=== PATIENT | female | born 1975 | race Caucasian/White ===

== ENCOUNTER → 2016-10-18 | Outpatient (CLI) | payer OTHER ==
--- NOTE | 2016-10-22 08:07 | MM ---
Reason for exam: screening (asymptomatic). Last mammogram was performed 5 years and 1 month ago. History: Patient had first child at age 31. Family history of breast cancer in paternal grandmother at age 70. Physical Findings: A clinical breast exam by your physician is recommended on an annual basis and results should be correlated with mammographic findings. MG Screening Mammo w CAD Bilateral CC and MLO view(s) were taken. Prior study comparison: September 20, 2011, bilateral digital screening mammo w/CAD. The breast tissue is heterogeneously dense. This may lower the sensitivity of mammography. Stable faint grouped calcifications on the left breast. No significant changes when compared with prior studies. ASSESSMENT: Negative, BI-RAD 1 RECOMMENDATION: Routine screening mammogram of both breasts in 1 year.
== END | disposition home or self-care (01) ==
LOC: RADMAMWWP 13:30
PROVIDERS: ATTEND Obstetrics & Gynecology
DX: Z12.31 Encounter for screening mammogram for malignant neoplasm of breast (principal)

== ENCOUNTER → 2016-11-11 | Outpatient (CLI) | payer OTHER ==
[2016-11-11 07:06] LABS: Basophils % (A) 1 %; CH 30.8; CHCM 32.7; Eosinophils # (A) 0.1 k/uL (0-0.7); Eosinophils % (A) 1 %; HCT 43.4 % (34.0-46.0); HDW 2.36; HGB 14.1 gm/dL (11.4-16.0); Luc # (Auto) 0.16; Luc % (Auto) 3; Lymphocytes # (A) 1.5 k/uL (1.0-4.8); Lymphocytes % (A) 30 %; MCH 30.7 pg (25.0-35.0); MCHC 32.5 g/dL (31.0-37.0); MCV 94.6 fL (80.0-100.0); Mean Platelet Volume 7.6; Monocytes # (A) 0.4 k/uL (0-1.0); Monocytes % (A) 7 %; Neutrophils # (A) 2.8 k/uL (1.3-7.7); Neutrophils % (A) 58 %; RBC 4.58 m/uL (3.80-5.40); RDW 12.3 % (11.5-15.5); WBC 4.9 k/uL (3.8-10.6); WBC (Perox) 4.93
== END | disposition home or self-care (01) ==
LOC: LABPAT 06:38
PROVIDERS: ATTEND Obstetrics & Gynecology
DX: Z01.812 Encounter for preprocedural laboratory examination (principal)
CPT/HCPCS: 85025

== ENCOUNTER 2016-11-19 06:23 | Day surgery (SDC) | payer OTHER, BC ==
--- NOTE | 2016-11-18 20:04 | P.HPOB ---
History of Present Illness H&P Date: 11/18/16 Chief Complaint: Menorrhagia, family planning This is a 41-year-old female 2 para 2 who presents for dilation and curettage with hysteroscopy and NovaSure endometrial ablation along with laparoscopic tubal ligation secondary to menorrhagia and family planning. Her menses are occurring every 26 days the last 6 days with the first 2-3 days very heavy to the point she has to change a pad every hour. In addition she would like a laparoscopic tubal ligation for family planning Her previous ultrasound has shown a uterus measuring up to 8 cm in length with no abnormalities noted on ovaries. Obstetrical history: . History of 2 vaginal deliveries. Gynecologic history: No history of sexual transmitted diseases. Social history: She is she is currently using condoms for control. She works as a teacher. Review of Systems Menstruation: Reports period heavy Psychiatric: Reports anxiety Past Medical History Past Medical History: No Reported History Additional Past Medical History / Comment(s): MENORRHAGIA History of Any Multi-Drug Resistant Organisms: None Reported Past Surgical History: No Surgical Hx Reported Past Anesthesia/Blood Transfusion Reactions: No Reported Reaction Additional Past Anesthesia/Blood Transfusion Reaction / Comment(s): NO PRIOR ANESTHESIA HX Past Psychological History: No Psychological Hx Reported Smoking Status: Current every day smoker Past Alcohol Use History: Occasional Additional Past Alcohol Use History / Comment(s): SMOKES <1/2 PPD OFF AND ON SINCE 2001 Past Drug Use History: None Reported - Past Family History Mother Family Medical History: Thyroid Disorder Medications and Allergies Home Medications Medication Instructions Recorded Confirmed Type No Known Home Medications [No 11/15/16 11/15/16 History Known Home Medications] Allergies Allergy/AdvReac Type Severity Reaction Status Date / Time No Known Allergies Allergy Verified 11/15/16 09:57 Exam Osteopathic Statement: *. No significant issues noted on an osteopathic structural exam other than those noted in the History and Physical/Consult. HEENT: Within normal limits Heart: Regular rate and rhythm Lungs: Clear to auscultation bilaterally Abdomen: Soft, nontender Pelvic exam: Uterus is small, anteverted, no adnexal masses or tenderness noted. Extremities: Negative Homans Assessment and Plan (1) Menorrhagia with regular cycle Status: Acute (2) Family planning Status: Acute Plan: Proceed with dilation and curettage with hysteroscopy and NovaSure endometrial ablation along with laparoscopic bilateral tubal ligation via fulguration. I have discussed the risks, benefits, and alternative therapies for the above- mentioned procedure and for both sedation/anesthesia as well as necessary blood products administration, if indicated, as they pertain to this patient. The patient has indicated her understanding and acceptance of the risks and procedures discussed.
[~2016-11-19 06:23] MED LIST: DEXAMETHASONE SOD PHOSPHATE 10 MG/ML 1 ML VIAL IV ONE; HYDROmorphone 1 MG/ML 1 ML SYRINGE IVP PRN; LACTATED RINGERS 1,000 ML IV SCH; LIDOCAINE 1% 20 ML VIAL (10MG/ML) FOR IV START INTRADERMA PRN; MIDAZOLAM 2 MG/2 ML VIAL IV PRN; ONDANSETRON 4 MG/2 ML VIAL IVP ONE; Pre Op ABX Message 1 EACH MISC MISCELLANE ONE; SCOPOLAMINE 1.5MG/72HR PATCH TRANSDERM ONE
[2016-11-19] MEDS ORDERED: PROPOFOL 10 MG/ML 20 ML VIAL IV ONE (07:30)
[2016-11-19] MEDS ORDERED: SUCCINYLCHOLINE CHLORIDE 100 MG/5 ML SYR IV ONE (07:30)
[2016-11-19] MEDS ORDERED: MIDAZOLAM 2 MG/2 ML VIAL ONE (07:30)
[2016-11-19] MEDS ORDERED: fentaNYL (PF) 50 MCG/ML 2 ML AMP ONE (07:30)
[2016-11-19] MEDS ORDERED: GLYCOPYRROLATE 0.2 MG/ML 2 ML VIAL ONE (07:30)
[2016-11-19] MEDS ORDERED: LIDOCAINE 1% INJ 10MG/ML (20 ML MDV) ONE (07:30)
[2016-11-19] MEDS ORDERED: NEOSTIGMINE 1 MG/ML 10 ML VIAL ONE (07:30)
[2016-11-19] MEDS ORDERED: ROCURONIUM BROMIDE 10 MG/ML 10 ML VIAL IV ONE (07:30)
[2016-11-19] MEDS ORDERED: KETOROLAC 30 MG/ML 1 ML VIAL ONE (07:30)
[2016-11-19] MEDS ORDERED: LACTATED RINGERS 1,000 ML IV ONE (08:15)
[2016-11-19] MEDS ORDERED: BUPIVACAINE (PF) 0.25% 30 ML VIAL SQ ONE (08:24)
--- NOTE | 2016-11-19 08:35 | P.OP ---
Date of Procedure: 11/19/16 Preoperative Diagnosis: Menorrhagia, family planning Postoperative Diagnosis: Same Procedure(s) Performed: Hysteroscopy with dilation and curettage and NovaSure endometrial ablation Laparoscopic bilateral tubal ligation via fulguration Anesthesia: LATESHA Surgeon: Fara Khalil Estimated Blood Loss (ml): 5 Pathology: other (Endometrial curettings) Condition: stable Disposition: same day Indications for Procedure: This is a 41-year-old female 2 para 2 who presents for dilation and curettage with hysteroscopy and NovaSure endometrial ablation along with laparoscopic tubal ligation secondary to menorrhagia and family planning. Her menses are occurring every 26 days the last 6 days with the first 2-3 days very heavy to the point she has to change a pad every hour. In addition she would like a laparoscopic tubal ligation for family planning Her previous ultrasound has shown a uterus measuring up to 8 cm in length with no abnormalities noted on ovaries. Operative Findings: Uterus is sounded to 8 cm. Cervix is sounded to 3 cm. Uterus is anteverted with no adnexal masses palpated. Upon hysteroscopy a relatively uniform endometrial pattern is noted with both tubal ostia visualized. A moderate amount of endometrial curettings are obtained. Upon laparoscopy normal uterus tubes and ovaries are noted. Appendix was also visualized and appears normal. Description of Procedure: The patient is taken to the operating room. She is placed in the dorsal lithotomy position after general anesthesia was given. She is prepped and draped in the normal sterile fashion. Bladder is drained with a catheter and then removed. Pelvic exam is performed under anesthesia. Uterus is found to be anteverted with no adnexal masses. She is placed in slight Trendelenburg position. A right angle retractor is used to visualize the cervix. The anterior lip of the cervix is grasped with a single-tooth tenaculum. Cervix is sounded to 3 cm. Uterus is sounded to 8 cm. Cervix is gently dilated with Blood dilators until a hysteroscope could be passed. Hysteroscopy is performed using normal saline. The above noted findings are noted. Next a polyp forceps is introduced. A minimal amount of tissue was obtained. Next medium-sized size sharp curette was placed. A moderate amount of endometrial curettings were obtained. Next NovaSure array was inserted into the endometrial cavity. Length was set at 5 cm and width was determined to be 3.4 cm. Next cavity assessment was completed and passed on the first try. Next NovaSure array was fired at [address] for when he 1 seconds. Next the array was removed, inspected and then discarded. Next the hysteroscope was reinserted. Uniform charring was noted. Pictures were taken. Hysteroscope was removed. Next a kroner uterine manipulator was inserted and the balloon was inflated. Single-tooth tenaculum was removed from the anterior lip of the cervix. Minimal bleeding was noted. All other instruments removed from the vagina. Attention is then turned to the abdomen. The infraumbilical fold was grasped in transverse fashion with 2 Allis clamps. A small transverse incision was made with a scalpel. A hemostat was used to carry the incision down to the underlying layer of fascia. A towel clip was placed above the umbilicus for retraction. A 10 mm disposable bladeless trocar was then inserted into the peritoneal cavity under direct visualization. Once inside, pneumoperitoneum was achieved with CO2 gas. The insert was removed and the camera was placed. Intraperitoneal placement was confirmed. No bleeding was noted. Next the patient was placed in Trendelenburg position. A small stab incision was made suprapubically and a 5 mm disposable bladeless trocar was inserted into the peritoneal cavity under direct visualization. Once inside pelvic contents were inspected. Next a bipolar Kleppinger instrument was placed through the inferior trocar and the midportion of each tube was brought away from other structures and completely fulgurated on approximate 2-3 cm segment of each tube. Excellent hemostasis was noted. A picture was taken. Pneumoperitoneum was released after the inferior trocar was removed under direct visualization. The upper trocar was then removed. The fascial incision was closed with 0 Vicryl suture in interrupted [id number] stitch. The skin incisions were then closed with 4-0 Vicryl suture in a subcuticular fashion. Next the kroner uterine manipulator was removed. Minimal bleeding was noted. All sponge and needle counts are correct. The patient is then taken to recovery room in stable condition.
[2016-11-19 08:45] VITALS: TEMP 97.4
[2016-11-19] MEDS ORDERED: Acetaminophen-Codeine 300-30mg TAB PO ONE (10:12)
[2016-11-19 11:01] VITALS: BP 115/74; PULSE 78; RESP 18
== END 2016-11-19 12:04 | disposition home or self-care (01) ==
LOC: OR 06:23
PROVIDERS: ATTEND Obstetrics & Gynecology
DX: N92.0 Excessive and frequent menstruation with regular cycle (principal); F17.200 Nicotine dependence, unspecified, uncomplicated; Z30.2 Encounter for sterilization
CPT/HCPCS: 81025; 88305; 84703; 58563; 58670; J2250; J1100; J2710; J2405; J2001; J3010; J1885; J1170; J0330; J2704

== ENCOUNTER 2018-05-20 04:43 | Emergency (ER) | payer BC, OTHER ==
[2018-05-20 04:48] VITALS: RESP 18
--- NOTE | 2018-05-20 05:04 | ED ---
General Adult HPI - General Chief complaint: Head Injury Stated complaint: Head Injury Time Seen by Provider: 05/20/18 04:51 Source: patient, RN notes reviewed, old records reviewed Mode of arrival: ambulatory Limitations: no limitations - History of Present Illness Initial comments: 42-year-old female presents with left eye swelling. Patient fell on Friday striking her left forehead on a tile floor. There was no loss consciousness. Patient is otherwise healthy. She states that initially she had some significant swelling and bruising at the site of injury. Over the past several days this has progressed to left I limited swelling and ecchymosis. Patient denies any vision changes. Denies blurry vision or double vision. Denies focal weakness or numbness. Denies neck pain or any other injury. - Related Data Previous Rx's Medication Instructions Recorded Acetaminophen with Codeine 1 tab PO Q4H PRN #30 tab 11/19/16 [Tylenol w/codeine #3] Allergies Allergy/AdvReac Type Severity Reaction Status Date / Time No Known Allergies Allergy Verified 05/20/18 04:48 Review of Systems ROS Statement: Those systems with pertinent positive or pertinent negative responses have been documented in the HPI. ROS Other: All systems not noted in ROS Statement are negative. Past Medical History Past Medical History: No Reported History History of Any Multi-Drug Resistant Organisms: None Reported Past Surgical History: Ablation Past Psychological History: No Psychological Hx Reported Smoking Status: Current every day smoker Past Alcohol Use History: Occasional Past Drug Use History: None Reported General Exam Limitations: no limitations General appearance: alert, in no apparent distress Head exam: Present: normocephalic, other ((Ecchymosis) Eye exam: Present: PERRL, EOMI, periorbital swelling, periorbital tenderness ENT exam: Present: normal exam Neck exam: Present: normal inspection. Absent: tenderness, meningismus, full ROM Respiratory exam: Present: normal lung sounds bilaterally, respiratory distress Cardiovascular Exam: Present: regular rate, normal rhythm GI/Abdominal exam: Present: soft. Absent: distended, tenderness, guarding Extremities exam: Present: normal inspection Neurological exam: Present: alert, oriented X3, CN II-XII intact. Absent: motor sensory deficit Course Vital Signs 05/20/18 04:45 Temperature 98.1 F Pulse Rate 81 Respiratory 18 Rate Blood Pressure 137/92 O2 Sat by Pulse 98 Oximetry Medical Decision Making - Medical Decision Making 42-year-old female with head injury and periorbital swelling. Extraocular motions are intact, no visual changes. There is low suspicion for intracranial or orbital injury. This is discussed with the patient regarding the risks of computed tomography scan and the associated radiation. She prefers to have a complete evaluation including CT. This is obtained in the emergency department. Head CT is negative for intracranial hemorrhage or mass effect. There is soft tissue swelling around the left orbit. No bony abnormality. Patient will be discharged home. Follow up with primary care physician for reevaluation. Disposition Clinical Impression: Closed head injury, Periorbital ecchymosis Disposition: HOME SELF-CARE Instructions: Concussion (ED) Is patient prescribed a controlled substance at d/c from ED?: No Referrals: None,Stated [Primary Care Provider] - 1-2 days Zee Berkowitz MD [STAFF PHYSICIAN] - 1-2 days Time of Disposition: 05:47
--- NOTE | 2018-05-20 05:38 | CT ---
EXAM: CT Head Without Intravenous Contrast CLINICAL HISTORY: ITS.REASON CT Reason: Pain fall 2 days ago, hitting left side of face on tile floor, no LOC, TECHNIQUE: Axial computed tomography images of the head/brain without intravenous contrast. CTDI is 59.43 mGy and DLP is 1117.27 mGy-cm. This CT exam was performed using one or more of the following dose reduction techniques: automated exposure control, adjustment of the mA and/or kV according to patient size, and/or use of iterative reconstruction technique. COMPARISON: No relevant prior studies available. FINDINGS: Brain: Unremarkable. No hemorrhage. No significant white matter disease. No edema. Ventricles: Unremarkable. No ventriculomegaly. Bones/joints: Unremarkable. No acute fracture. Soft tissues: Left frontal scalp swelling. Left forehead and periorbital soft tissue swelling. Sinuses: Unremarkable as visualized. No acute sinusitis. Mastoid air cells: Unremarkable as visualized. No mastoid effusion. IMPRESSION: 1. No evidence of acute intracranial abnormality or skull fracture. 2. Left frontal scalp swelling. Left forehead and periorbital soft tissue swelling.
--- NOTE | 2018-05-20 05:41 | CT ---
EXAM: CT Maxillofacial Without Intravenous Contrast CLINICAL HISTORY: ITS.REASON CT Reason: Pain TECHNIQUE: Axial computed tomography images of the face without intravenous contrast. CTDI is 31.41 mGy and DLP is 494.78 mGy-cm. This CT exam was performed using one or more of the following dose reduction techniques: automated exposure control, adjustment of the mA and/or kV according to patient size, and/or use of iterative reconstruction technique. COMPARISON: No relevant prior studies available. FINDINGS: Bones/joints: No acute fracture. Soft tissues: Left frontal scalp swelling. Left periorbital soft tissue swelling. Orbits: Unremarkable. Sinuses: Unremarkable. No air-fluid levels. IMPRESSION: 1. No evidence of acute fracture or dislocation. 2. Left frontal scalp swelling. Left periorbital soft tissue swelling.
[2018-05-20 06:31] VITALS: BP 134/65; PULSE 79; TEMP 98.5
== END 2018-05-20 06:11 | disposition home or self-care (01) ==
LOC: EC 04:43
DX: S00.12XA Contusion of left eyelid and periocular area, initial encounter (principal); F17.200 Nicotine dependence, unspecified, uncomplicated; W01.198A Fall on same level from slipping, tripping and stumbling with subsequent striking against other object, initial encounter; Y92.009 Unspecified place in unspecified non-institutional (private) residence as the place of occurrence of the external cause
CPT/HCPCS: 70450; 70486; 99284

== ENCOUNTER → 2019-03-11 | Outpatient (CLI) | payer BC ==
--- NOTE | 2019-03-11 11:50 | US ---
EXAMINATION TYPE: US abdomen complete DATE OF EXAM: 03/11/2019 COMPARISON: NONE CLINICAL HISTORY: 43 year-old female epigastric pain, abd distention R10.13 R14.0. Epigastric pain, abdominal distention, NPO TECHNIQUE: Multiple sonographic images of the abdomen are obtained. FINDINGS: EXAM MEASUREMENTS: Liver Length: 14.3 cm Gallbladder Wall: 0.1 cm CBD: 0.3 cm Spleen: 12.2 cm Right Kidney: 9.5 x 5.4 x 4.2 cm Left Kidney: 9.8 x 4.3 x 4.6 cm Pancreas: wnl Liver: Normal size with normal homogeneous echotexture. No focal lesion. Gallbladder: No abnormal gallbladder distention, wall thickening, pericholecystic fluid, or shadowin g calculi. Evidence for sonographic Zamarripa's sign: neg CBD: wnl Spleen: Normal size. Right Kidney: No hydronephrosis Left Kidney: No hydronephrosis Upper IVC: wnl Abd Aorta: No AAA visualized IMPRESSION: Unremarkable sonographic examination of the abdomen.
--- NOTE | 2019-03-11 11:54 | FL ---
EXAMINATION TYPE: FL UGI air DATE OF EXAM: 03/11/2019 COMPARISON: NONE HISTORY: 43 year-old female epigastric pain and abdominal distention TECHNIQUE: A double contrast UGI study is performed. FINDINGS: The esophagus shows normal motility and emptying into the stomach. There is a tiny sliding hiatal hernia and spontaneous severe gastroesophageal reflux with the patient is brought supine. The stomach shows normal distensibility, peristalsis, and mucosal folds. No evidence of any mass or ulcer disease. The duodenal bulb, sweep, and proximal small bowel loops are unremarkable. IMPRESSION: 1. Tiny sliding hernia but with severe spontaneous gastroesophageal reflux. 2. Otherwise, unremarkable upper GI examination.
== END | disposition home or self-care (01) ==
LOC: RADUSWWP 09:37
PROVIDERS: ATTEND Family Medicine
DX: K44.9 Diaphragmatic hernia without obstruction or gangrene (principal); K21.9 Gastro-esophageal reflux disease without esophagitis
CPT/HCPCS: 74246; 76700

== ENCOUNTER → 2019-05-29 | Outpatient (CLI) | payer BC ==
--- NOTE | 2019-05-29 11:34 | NM ---
EXAMINATION TYPE: NM hepatobiliary w EF DATE OF EXAM: 05/29/2019 COMPARISON: None INDICATION: Abdominal distention TECHNIQUE: After the intravenous administration of 4.3 mCi Tc 99m Mebrofenin hepatobiliary scintigrap hy is performed. Images were obtained immediately post injection. FINDINGS: There is prompt uptake and excretion of radiotracer by the liver. Extrahepatic ducts are identified at 14 minutes. The gallbladder is visualized within 14 minutes. Small bowel activity is noted within 25 minutes. At one hour 8 ounces of oral ensure plus is given to mimic CCK and gallbladder ejection fraction is c alculated at 61 %, which is in the normal range. (Normal >35% and <80%.). IMPRESSION: 1. Normal hepatobiliary scan
== END | disposition home or self-care (01) ==
LOC: RADNMMAIN 09:10
PROVIDERS: ATTEND Family Medicine
DX: R10.13 Epigastric pain (principal)
CPT/HCPCS: 78226; A9537

== ENCOUNTER → 2019-10-13 | Outpatient (CLI) | payer BC ==
--- NOTE | 2019-10-13 19:25 | CONS ---
CONSULTATION DATE OF SERVICE: 10/13/2019 44-year-old lady who has been evaluated in the sleep center for significant excessive daytime sleepiness. HISTORY OF PRESENT ILLNESS/SLEEP-WAKE EVALUATION: The patient referred developing sleepiness, more sleepiness during the day for about 1 year. Presently shows sleep schedule from around 10:00 pm to 5 a.m. and on working days and from midnight until 8 or 9 a.m. on weekends. She does have problems with falling asleep although no TV in bedroom. She usually sleeps on the side or stomach position. She wakes up from sleep about 3 times with grinding teeth and sweating. No information about snoring during the sleep. The patient sleeps by herself. She may have episodes of nocturia up to 3 times at night. In the morning, patient wakes up tired. Falling asleep during the day, and worry about her sleep. [place] Sleepiness Scale significantly increased to 17. She may take a nap on non-working days. Usually she feels refreshed after a nap. Usually no dreams during nap. Sometimes she may see dreams during the sleep. Sometimes she wakes up during the dream. She also feels that she is moving her eyes during the sleep. She is using special masks which covers her eyes during the night. PAST MEDICAL HISTORY: Positive for hypothyroidism, acid reflux. PAST SURGICAL HISTORY: Uterus ablation for bleeding in 2016, status post tubal ligation. MEDICATIONS: Synthroid, omeprazole. SOCIAL HISTORY: Positive for smoking about 1 pack a day for 20 years. Quit 6 months ago. Alcohol consumption occasional. FAMILY HISTORY: Hypertension, heart problems, hyperlipidemia, stroke, arthritis, emphysema, sleep apnea, cancer, acid reflux, thyroid problems, restless legs. REVIEW OF SYSTEMS: Awakenings from sleep, sleepiness during the day. PHYSICAL EXAM: lady without distress. BP 113/76, HR 65, RR 16, height 5 feet 9 inches, weight 181.6 pounds, body mass index 26.7, temperature 98.5, oxygen saturation at room air 97%. Oropharynx: Low position of the soft palate. With phonation, position of soft palate is normal. Neck 14 inches in circumference, overbite 2 mm. NECK: Supple, no JVD. Thyroid is not palpable. LUNGS: Clear to percussion and to auscultation. Good air exchange. No wheezing or rhonchi. HEART: S1, S2 regular. No murmurs, gallops, or rubs. ABDOMEN: Soft and nontender. Bowel sounds are present. No organomegaly appreciated. EXTREMITIES: No clubbing or cyanosis. GLASS WASHER: Awake, alert, and oriented X3. Cranial nerves 2 to 7 intact. There is no fasciculation or atrophy. noted. No focal deficits observed. IMPRESSION: 1. Significant excessive daytime sleepiness. [place] Sleepiness Scale is 17. The patient takes nap when she has free time. Differential diagnosis includes hypersomnia, including narcolepsy without cataplexy. 2. Increasing weight for about 50 pounds according to the patient for last year. Retrognathia 2 mm. Awakenings from sleep with nocturia. Differential diagnosis should include obstructive sleep apnea. 3. Symptoms of restless legs while falling asleep. 4. Hypothyroidism. 5. Acid reflux. 6. Status post uterus ablation for bleeding. 7. Status post tubal ligation. PLAN: 1. Polysomnography with following multiple sleep latency test for objective evaluation of patient's symptoms of excessive daytime sleepiness. 2. Following plan after reviewing results of sleep study. 3. Watching and losing weight. 4. Sleep hygiene with regular time in bed for at least 7-1/2 to 8 hours. 5. Precautions related to driving. No driving if feeling any sleepiness. Thank you very much for referring this patient for consultation Sincerely, Javier Turner MD, PhD, FAASM Diplomat of [employer] Regional Director Of [employer] of [facility] [place] MMODL / IJN: [id number] /
== END | disposition home or self-care (01) ==
LOC: SLEEP 14:43
PROVIDERS: ATTEND Internal Medicine
DX: G47.10 Hypersomnia, unspecified (principal); M26.19 Other specified anomalies of jaw-cranial base relationship; G47.8 Other sleep disorders; R35.1 Nocturia; E03.9 Hypothyroidism, unspecified; K21.9 Gastro-esophageal reflux disease without esophagitis; Z87.891 Personal history of nicotine dependence; Z98.890 Other specified postprocedural states; Z98.51 Tubal ligation status; Z83.6 Family history of other diseases of the respiratory system; Z79.899 Other long term (current) drug therapy
CPT/HCPCS: 99211

== ENCOUNTER → 2019-10-14 | Outpatient (CLI) | payer BC ==
--- NOTE | 2019-10-14 11:49 | MM ---
Reason for exam: additional evaluation requested from abnormal screening. Last mammogram was performed less than 1 month ago. History: Patient is postmenopausal and had first child at age 31. Family history of breast cancer in paternal grandmother at age 70. Physical Findings: Nurse did not find any significant physical abnormalities on exam. MG Work Up Mamm w CAD LT MLO with magnification and spot compression MLO view(s) were taken of the left breast. Prior study comparison: October 02, 2019, bilateral MG screening mammo w CAD. October 18, 2016, bilateral MG screening mammo w CAD. The breast tissue is heterogeneously dense. This may lower the sensitivity of mammography. Finding #1: Architectural distortion in the upper outer quadrant of the left breast persists. Finding #2: There are questionable suspicious calcifications in the left breast. These results were verbally communicated with the patient and result sheet given to the patient on 10/14/19. ASSESSMENT: Incomplete: need additional imaging evaluation, BI-RAD 0 RECOMMENDATION: Ultrasound and stereotactic core biopsy of the left breast. Called Dr. Khalil's office with mammographic findings and has scheduled an appointment for the patient for 11/12/19 at 2:[address] Birch. Biopsy scheduled for 11/25/19 at 8:00. PRELIMINARY REPORT CALLED AND FAXED TO DR. BIRCH ON 10/14/19.
--- NOTE | 2019-10-14 11:51 | USB ---
Reason for exam: additional evaluation requested from abnormal screening. History: Patient is postmenopausal and had first child at age 31. Family history of breast cancer in paternal grandmother at age 70. US Breast Workup Limited LT Technologist: Chasity Adamson Left limited breast ultrasound including focal area of concern, retroareolar and axilla demonstrates a 0.2 x 0.3 x 0.3cm circular, cystic lesion at 2 o'clock and a 0.2 x 0.3 x 0.3cm circular, cystic lesion at 2 o'clock. These results were verbally communicated with the patient and result sheet given to the patient on 10/14/19. ASSESSMENT: Probably benign, BI-RAD 3 RECOMMENDATION: Ultrasound of the left breast in 6 months.
== END | disposition home or self-care (01) ==
LOC: RADMAMWWP 08:45
PROVIDERS: ATTEND Obstetrics & Gynecology
DX: R92.8 Other abnormal and inconclusive findings on diagnostic imaging of breast (principal)
CPT/HCPCS: 77065

== ENCOUNTER → 2019-11-12 | Outpatient (CLI) | payer BC ==
[2019-11-13 02:35] LABS: Prolactin 6.1 ng/mL (2.8-29.2)
== END | disposition home or self-care (01) ==
LOC: LABWHC1 14:19
PROVIDERS: ATTEND Internal Medicine Endocrinology, Diabetes & Metabolism
DX: E03.8 Other specified hypothyroidism (principal); R53.83 Other fatigue
CPT/HCPCS: 36415; 82024; 82533; 82607; 84146; 84443

== ENCOUNTER → 2019-11-25 | Day surgery (SDC) | payer BC ==
[2019-11-25 07:27] VITALS: BP 109/78; PULSE 52; RESP 16; TEMP 97.5
--- NOTE | 2019-11-25 08:59 | MM ---
EXAMINATION TYPE: MG discontinued stereo core LT DATE OF EXAM: 11/25/2019 COMPARISON: Screening mammogram dated 10/02/2019 and mammographic workup dated 10/14/2019 CLINICAL HISTORY: Left breast TECHNIQUE: Canceled stereotactic guided core biopsy of left breast. FINDINGS: The 2-D images were reviewed from the screening mammogram of 10/02/2019 and diagnostic mammo gram of 10/14/2019. The architectural distortion of the upper outer quadrant of the left breast does p ersist but would be better appreciated on 3-D mammogram. This was discussed with the patient and deci chandni was made to perform 3-D imaging of the left breast. Architectural distortion again persists on C C 3-D image 26/68 laterally located approximately 6.5 cm from the nipple and on the MLO image 23/68 s uperiorly located approximately 6.0 cm in the nipple. On the lateral view this persists on image 34/6 3 located approximately 6.5 cm from the nipple. Findings and recommendation for 3-D biopsy to more ac curately samples the appropriate site were discussed in person with the patient by myself, Dr. Cele alford 11/25/2019 after canceling the 2-D stereotactic guided biopsy. IMPRESSION: BI-RADS 4-suspicious abnormality. 3-D guided biopsy of the upper outer quadrant of the le ft breast is recommended. The patient will be set up at [facility] for biopsy.
== END ==
LOC: RADMAMWWP 06:54
PROVIDERS: ATTEND Surgery
DX: R92.8 Other abnormal and inconclusive findings on diagnostic imaging of breast (principal)

== ENCOUNTER → 2019-11-25 | Outpatient (CLI) | payer BC ==
--- NOTE | 2019-11-25 16:23 | PN ---
PROGRESS NOTE DATE OF SERVICE: 11/25/2019 Ppgau-pilx-exbx-old lady has [facility] to discuss results of sleep studies and following plan. I discussed the results of the sleep study with the patient and family in detail. Diagnostic sleep study did not show significant respiratory abnormalities during the sleep. It was documented only two abnormal events with apnea-hypopnea index of 0.3. Lowest oxygen level was 91.5% which is normal. Multiple sleep latency test consisted from 5 naps and confirmed sleepiness. Mean sleep latency was short 7.1 minutes. Two sleep onset REM periods have been documented during nap three and nap five which may indicate possibility of narcolepsy. Bulger Sleepiness Scale today is 16 which is significantly above normal, indicates sleepiness. The patient has also difficulties to initiate sleep at home and awakenings from sleep. PHYSICAL EXAMINATION: GENERAL: During physical examination, the patient is in no distress. VITAL SIGNS: Blood pressure 116/84, heart rate 69, respiratory rate 15, temperature 98.0, oxygen saturation on room air 98%. HEENT: PERRLA, EOMI, evaluation of oropharynx showed tongue protrudes midline. Oropharynx: Low position of soft palate. NECK: Supple, no JVD. Thyroid is not palpable. LUNGS: Clear to percussion and to auscultation. Good air exchange. No wheezing or rhonchi. HEART: S1, S2 regular. No murmurs, gallops, or rubs. ABDOMEN: Soft and nontender. Bowel sounds are present. No organomegaly appreciated. EXTREMITIES: No clubbing or cyanosis. CONSUMER STUDIES PROFESSOR: Awake, alert, and oriented X3. Cranial nerves 2 to 7 intact. There is no fasciculation or atrophy. noted. No focal deficits observed. IMPRESSION: 1. No significant respiratory abnormality by results of polysomnogram. 2. Multiple sleep latency test confirms sleepiness, mean sleep latency 7.1 minutes. Two sleep onset REM periods have been documented which are consistent with possible narcolepsy. 3. Difficulties to initiate sleep and awakenings from sleep at home, insomnia. 4. Hypothyroidism. 5. Acid reflux. 6. Status post uterus ablation for bleeding. 7. Status post tubal ligation. PLAN: 1. Patient referred most sleepiness in the range of 2 p.m. I will start her on treatment with Adderall 10 mg at 12:00 noon/1:00 p.m. 2. The patient will start to take Ambien 5 mg about 1 hour before bedtime. 3. Precautions related to driving. No driving if feeling sleepiness. 4. Daytime naps permitted. 5. Follow up visit in one to two months. Thank you very much for allowing me to participate in the management of your patient. Sincerely, Javier Turner MD, PhD, FAASM Diplomat of [employer] Operator of [facility] [place] [facility] / JOLEENN: [phone] /
== END | disposition home or self-care (01) ==
LOC: SLEEP 13:50
PROVIDERS: ATTEND Internal Medicine
DX: G47.8 Other sleep disorders (principal); E03.9 Hypothyroidism, unspecified; K21.9 Gastro-esophageal reflux disease without esophagitis; Z98.51 Tubal ligation status; Z98.890 Other specified postprocedural states

== ENCOUNTER → 2021-06-22 | Outpatient (CLI) | payer BC ==
--- NOTE | 2021-06-25 12:32 | MM ---
Reason for exam: additional evaluation requested from prior study. Last mammogram was performed 1 year and 8 months ago. History: Patient is postmenopausal and had first child at age 31. Family history of breast cancer in paternal grandmother at age 70. MG discontinued stereo core LT of the left breast, November 25, 2019. Stereotactic core biopsy of the left breast, November 2019. Physical Findings: Nurse did not find any significant physical abnormalities on exam. MG 3D Diag Mammo W/Cad CHANTALE Bilateral CC and MLO view(s) were taken. LM, CC with magnification, and LM with magnification view(s) were taken of the left breast. Prior study comparison: October 14, 2019, left breast MG work up mamm w CAD LT. October 02, 2019, bilateral MG screening mammo w CAD. The breast tissue is heterogeneously dense. This may lower the sensitivity of mammography. Finding: There are round, grouped/clustered calcifications in the upper outer quadrant, middle position of the left breast, less apart in magnifications views. Previous mammotome biopsy in the left breast. New finding since October 14, 2019 and October 02, 2019. These results were verbally communicated with the patient and result sheet given to the patient on 06/22/21. ASSESSMENT: Probably benign, BI-RAD 3 RECOMMENDATION: Follow-up diagnostic mammogram of the left breast in 6 months. (magnification views)
--- NOTE | 2021-06-25 12:33 | USB ---
Reason for exam: additional evaluation requested from prior study. History: Patient is postmenopausal and had first child at age 31. Family history of breast cancer in paternal grandmother at age 70. MG discontinued stereo core LT of the left breast, November 25, 2019. Stereotactic core biopsy of the left breast, November 2019. US Breast LT Left complete breast ultrasound includes all four quadrants, the retroareolar region and axilla. Finding demonstrates no cystic or solid lesion seen. These results were verbally communicated with the patient and result sheet given to the patient on 06/22/21. ASSESSMENT: Negative, BI-RAD 1 RECOMMENDATION: Follow-up diagnostic mammogram of the left breast in 6 months. (magnification views)
== END | disposition home or self-care (01) ==
LOC: RADMAMWWP 13:21
PROVIDERS: ATTEND Obstetrics & Gynecology
DX: R92.1 Mammographic calcification found on diagnostic imaging of breast (principal); Z78.0 Asymptomatic menopausal state; Z80.3 Family history of malignant neoplasm of breast
CPT/HCPCS: 77062; 77066

== ENCOUNTER → 2022-01-23 | Outpatient (CLI) | payer BC ==
--- NOTE | 2022-01-23 07:47 | US ---
EXAMINATION TYPE: US abdomen limited DATE OF EXAM: 01/23/2022 COMPARISON: NONE CLINICAL HISTORY: R19.01 RUQ abd mass/lump. patient lost 60lbs over 3 years and since working on abdo helga muscles noticed a small lump to the right if umbilicus, no pain 0.9 x 0.8cm hypoechoic area to the right of umbilicus, that when upon valsalva, peristalsing and veto r growth in size is seen. Probable small hernia IMPRESSION: 1. Findings suspicious for a intra-abdominal hernia containing some peristalsing bowel. CT could be p erformed for additional evaluation.
== END | disposition home or self-care (01) ==
LOC: RADUSWWP 07:07
PROVIDERS: ATTEND Family Medicine
DX: R19.01 Right upper quadrant abdominal swelling, mass and lump (principal)
CPT/HCPCS: 76705

== ENCOUNTER → 2022-03-01 | Outpatient (CLI) | payer BC | END | disposition home or self-care (01) | LOC: RADMAMWWP 11:12 | PROVIDERS: ATTEND Family Medicine | DX: Z53.9 Procedure and treatment not carried out, unspecified reason (principal) ==

== ENCOUNTER → 2022-07-26 | Outpatient (CLI) | payer BC ==
--- NOTE | 2022-07-26 14:19 | MM ---
Reason for Exam: Additional evaluation requested from prior study. Last mammogram was performed 1 year(s) and 1 month(s) ago. Patient History: Menarche at age 11. First Full-Term at age 31. Late child-bearing (after 30). Postmenopausal. 11/2019, Stereotactic Core Biopsy on the Left side. 11/25/2019, MG discontinued stereo core LT on the left side. 12/20/2021, Bilateral Implants. Paternal grandmother had breast cancer, age 70. Risk Values: Shayna 5 year model risk: 1.9%. NCI Lifetime model risk: 16.4%. Prior Study Comparison: 10/18/2016 Bilateral Screening Mammogram, [facility]. 10/02/2019 Bilateral Screening Mammogram, [facility]. 10/14/2019 Left Diagnostic Mammogram, [facility]. 06/22/2021 Bilateral Diagnostic Mammogram, [facility]. Tissue Density: The breast tissue is heterogeneously dense. This may lower the sensitivity of mammography. Findings: Biopsy clip noted in the left breast. Overall there has been post surgical changes with breast implants bilaterally. Given limitation of the exam there is no significant change from prior mammography before the implant placement. Overall Assessment: Benign, BI-RAD 2 Management: Screening Mammogram of both breasts in 1 year. A clinical breast exam by your physician is recommended on an annual basis and results should be correlated with mammographic findings. This exam should not preclude additional follow-up of suspicious palpable abnormalities. Results were given to the patient verbally at the time of exam. Electronically signed and approved by: Galileo Vazquez DO
== END | disposition home or self-care (01) ==
LOC: RADMAMWWP 13:01
PROVIDERS: ATTEND Obstetrics & Gynecology
DX: R92.8 Other abnormal and inconclusive findings on diagnostic imaging of breast (principal); Z78.0 Asymptomatic menopausal state; Z80.3 Family history of malignant neoplasm of breast
CPT/HCPCS: 77062; 77066

== ENCOUNTER → 2022-09-11 | Outpatient (CLI) | payer BC ==
--- NOTE | 2022-09-11 13:12 | US ---
EXAMINATION TYPE: US kidneys/renal and bladder DATE OF EXAM: 09/11/2022 COMPARISON: NONE CLINICAL HISTORY: N39.9 DISORDER OF URINARY SYSTEM, UNSPECIFIED. Pt states recurrent UTI's x 1 year EXAM MEASUREMENTS: Right Kidney: 10.8 x 4.0 x 5.3 cm Left Kidney: 10.5 x 5.0 x 4.9 cm Right Kidney: wnl Left Kidney: wnl Bladder: Anterior septation Bilateral Jets seen: Yes Incidental finding right ovarian cyst with septation= 3.7 x 2.8 x 3.4 cm There is no evidence for hydronephrosis at this point in time. No nephrolithiasis is seen. No kat s are identified. The urinary bladder is anechoic. Bilateral ureteral jets are seen. IMPRESSION: 1. Urinary bladder septation. 2. Incidental right ovarian cyst.
== END | disposition home or self-care (01) ==
LOC: RADUSWWP 11:43
PROVIDERS: ATTEND Urology
DX: N39.9 Disorder of urinary system, unspecified (principal); N83.201 Unspecified ovarian cyst, right side; Z87.440 Personal history of urinary (tract) infections
CPT/HCPCS: 76770

== ENCOUNTER 2023-11-07 11:13 | Day surgery (SDC) | payer BC ==
[~2023-11-07 11:13] MED LIST changes: -DEXAMETHASONE SOD PHOSPHATE 10 MG/ML 1 ML VIAL IV ONE; -HYDROmorphone 1 MG/ML 1 ML SYRINGE IVP PRN; +LIDOCAINE 1% (10MG/ML) FOR IV START INTRADERMA PRN; -LIDOCAINE 1% 20 ML VIAL (10MG/ML) FOR IV START INTRADERMA PRN; -MIDAZOLAM 2 MG/2 ML VIAL IV PRN; -ONDANSETRON 4 MG/2 ML VIAL IVP ONE; +ONDANSETRON 4 MG/2 ML VIAL IVP PRN; -Pre Op ABX Message 1 EACH MISC MISCELLANE ONE; -SCOPOLAMINE 1.5MG/72HR PATCH TRANSDERM ONE
[2023-11-07] MEDS: LACTATED RINGERS 1,000 ML IV SCH (12:05)
[2023-11-07 12:31] VITALS: RESP 16; TEMP 97.5
[2023-11-07] MEDS ORDERED: PROPOFOL 10 MG/ML 20 ML VIAL IV ONE (12:37)
--- NOTE | 2023-11-07 13:01 | P.PCN ---
Date of Procedure: 11/07/23 Procedure(s) Performed: BRIEF HISTORY: Patient is a 48-year-old pleasant white female scheduled for an elective colonoscopy as a part of as a part of screening for colorectal neoplasia. PROCEDURE PERFORMED: Colonoscopy. PREOPERATIVE DIAGNOSIS: Screening for colon cancer. IV sedation per Anesthesia. PROCEDURE: After informed consent was obtained, the patient, was brought into the endoscopy unit. IV sedation was administered by Anesthesia under continuous monitoring. Digital rectal examination was normal. Initially the Olympus CF-160 flexible video colonoscope was then inserted in the rectum, gradually advanced into the cecum without any difficulty. Careful examination was performed as the scope was gradually being withdrawn. Ileocecal valve and the appendiceal orifice were visualized and appeared normal. Prep was excellent. Mucosa of the cecum, ascending colon, transverse colon, descending colon, sigmoid colon, and rectum appeared normal. Scattered sigmoid diverticulosis. Retroflexion was performed in the rectum and no lesions were seen. The patient tolerated the procedure well. IMPRESSION: Normal-appearing colon from rectum to cecum no evidence of colorectal neoplasia Scattered sigmoid diverticulosis. RECOMMENDATIONS: Findings of this examination were discussed with the patient as well as a family. She was advised to have a repeat screening colonoscopy in 10 years.
[2023-11-07 13:33] VITALS: BP 119/74; PULSE 73
== END 2023-11-07 13:50 | disposition home or self-care (01) ==
LOC: ORWHC2ENDO 11:13
PROVIDERS: ATTEND Internal Medicine Gastroenterology
DX: Z12.11 Encounter for screening for malignant neoplasm of colon (principal); K57.30 Diverticulosis of large intestine without perforation or abscess without bleeding; E03.9 Hypothyroidism, unspecified; K21.9 Gastro-esophageal reflux disease without esophagitis; Z79.890 Hormone replacement therapy; Z79.899 Other long term (current) drug therapy
CPT/HCPCS: 81025

== ENCOUNTER → 2024-04-20 | Outpatient (CLI) | payer BC ==
--- NOTE | 2024-04-21 13:02 | MM ---
Reason for Exam: Screening (asymptomatic). Last mammogram was performed 1 year(s) and 8 month(s) ago. Patient History: Menarche at age 11. First Full-Term at age 31. Late child-bearing (after 30). Postmenopausal. Patient used Hormonal Contraceptives for 1 year. 11/2019, Stereotactic Core Biopsy on the Left side. 11/25/2019, MG discontinued stereo core LT on the left side. 12/20/2021, Bilateral Implants. Paternal grandmother had breast cancer, age 70. Risk Values: Shayna 5 year model risk: 1.8%. NCI Lifetime model risk: 16.1%. Prior Study Comparison: 10/14/2019 Left Diagnostic Mammogram, [facility]. 06/22/2021 Bilateral Diagnostic Mammogram, [facility]. 07/26/2022 Bilateral MG 3D diag mammo imp w/cad CHANTALE, [facility]. Tissue Density: There are scattered areas of fibroglandular density. Findings: Analyzed By CAD. Bilateral breast implants appear intact. Right breast: There is no suspicious group of microcalcifications or new suspicious mass. Left breast: There is no suspicious group of microcalcifications or new suspicious mass. Overall Assessment: Benign, BI-RAD 2 Management: Screening Mammogram of both breasts in [address] [facility] will attempt to contact patient to return for supplemental views and ultrasound if indicated. Patient should continue monthly self-breast exams. A clinical breast exam by your physician is recommended on an annual basis. This exam should not preclude additional follow-up of suspicious palpable abnormalities. Note on Shayna scores and lifetime risk: 1. A Shayna score greater than 3% is considered moderate risk. If this is the case, consider specialist referral to assess eligibility for a risk reducing agent. 2. If overall lifetime risk for the development of breast cancer is 20% or higher, the patient may qualify for future screening with alternating mammogram and breast MRI. Electronically signed and approved by: Galileo Vazquez DO
== END | disposition home or self-care (01) ==
LOC: RADMAMWWP 07:54
PROVIDERS: ATTEND Family Medicine
DX: Z12.31 Encounter for screening mammogram for malignant neoplasm of breast (principal); Z92.0 Personal history of contraception; Z78.0 Asymptomatic menopausal state; Z80.3 Family history of malignant neoplasm of breast; R92.323 Mammographic fibroglandular density, bilateral breasts
CPT/HCPCS: 77063; 77067

== ENCOUNTER 2024-09-17 11:17 | Day surgery (SDC) | payer BC ==
[2024-09-17 11:45] VITALS: TEMP 97.5
[2024-09-17] MEDS: LACTATED RINGERS 1,000 ML IV ONE (11:59)
[2024-09-17] MEDS: LACTATED RINGERS 1,000 ML IV SCH (11:59)
[2024-09-17] MEDS ORDERED: PROPOFOL 10 MG/ML 20 ML VIAL IV ONE (12:34)
[2024-09-17] MEDS ORDERED: LIDOCAINE 1% INJ 10MG/ML (20 ML MDV) ONE (12:34)
--- NOTE | 2024-09-17 12:46 | P.PCN ---
Date of Procedure: 09/17/24 Procedure(s) Performed: BRIEF HISTORY: Patient is a 49-year-old, pleasant, white female scheduled for an upper endoscopy for evaluation of lungs and history of GERD.. PROCEDURE PERFORMED: Esophagogastroduodenoscopy with biopsy.. PREOPERATIVE DIAGNOSIS: Longstanding history of GERD. IV sedation per anesthesia. PROCEDURE: After informed consent was obtained, the patient was brought into the endoscopy unit. IV sedation was administered by Anesthesia under continuous monitoring. Initially the Olympus GIF-140 video endoscope was inserted into the mouth. Esophagus intubated without any difficulty. It was gradually advanced into the stomach and duodenum and carefully examined. The bulb and the second part of the duodenum appeared normal. The scope at this time was withdrawn to the stomach, adequately insufflated with air, and upon careful examination, mucosa of the antrum, patchy area of the erythema which was biopsied. Mucosa body, cardia and the fundus appeared normal. The scope was then withdrawn into the esophagus. The GE junction was located at 39 cm from the incisors. There were 2 superficial erosions in the distal esophagus consistent with LA grade B reflux esophagitis. The rest of the esophagus appeared normal. the patient tolerated the procedure well. IMPRESSION: 1. Linear erosions in the distal esophagus consistent with LA grade B reflux esophagitis. 2. Mild antral gastritis. RECOMMENDATIONS: The findings of this examination were discussed with the patient as well as her family. She was advised to follow with the biopsy results.. Recommend trial of omeprazole 20 mg daily to be taken half hour before dinnertime and follow antireflux measures.
[2024-09-17 13:28] VITALS: BP 147/94; PULSE 62; RESP 20
== END 2024-09-17 13:43 ==
LOC: ORWHC2ENDO 11:17
PROVIDERS: ATTEND Internal Medicine Gastroenterology
DX: K21.9 Gastro-esophageal reflux disease without esophagitis (principal); K22.10 Ulcer of esophagus without bleeding; K29.50 Unspecified chronic gastritis without bleeding; E07.9 Disorder of thyroid, unspecified; Z79.890 Hormone replacement therapy
CPT/HCPCS: 81025; 88305; 43239; J2003; J2704